=== PATIENT | female | born 1960 ===

== ENCOUNTER 2020-04-30 18:31 | Inpatient (IN) | payer OTHER ==
--- NOTE | 2020-04-30 18:45 | Event Note ---
ED Screening Note Date of service: 04/30/20 Time: 18:45 ED Screening Note: 59-year-old female presents to the emergency room for weakness x2 months that is increasing, tachycardic, weight loss abdominal pain and not able to hold fluids down. This initial assessment/diagnostic orders/clinical plan/treatment(s) is/are subject to change based on patients health status, clinical progression and re- assessment by fellow clinical providers in the ED. Further treatment and workup at subsequent clinical providers discretion. Patient/guardian urged not to elope from the ED as their condition may be serious if not clinically assessed and managed. Initial orders include:
--- NOTE | 2020-04-30 19:18 | XRay Report ---
CHEST 2 VIEWS INDICATION: Weakness. COMPARISON: None FINDINGS: Support devices: None. Heart: Within normal limits. Lungs: No acute air space or interstitial disease. Pleura: No significant pleural effusion. No pneumothorax. Additional findings: None. IMPRESSION: 1. No acute findings. Signer Name: Ron Gavin MD Signed: 04/30/2020 7:13 PM Workstation Name: [id number]
[2020-04-30 19:28] LABS: Basophils % (Auto) 0.4 % (0.0-1.8); Eosinophils # (Auto) 0.1 K/mm3 (0.0-0.4); Eosinophils % (Auto) 1.4 % (0.0-4.3); Hemoglobin 15.1 gm/dl (10.1-14.3); Lymphocytes # (Auto) 2.1 K/mm3 (1.2-5.4); Lymphocytes % (Auto) 29.8 % (13.4-35.0); Mean Corpuscular HGB Conc 35 % (30-34); Mean Corpuscular Volume 92 fl (79-97); Monocytes # (Auto) 0.5 K/mm3 (0.0-0.8); Monocytes % (Auto) 6.9 % (0.0-7.3); Platelet Count 268 K/mm3 (140-440); Red Blood Count 4.69 M/mm3 (3.65-5.03); Red Cell Distribution Width 12.7 % (13.2-15.2)
[2020-04-30] MEDS ORDERED: SODIUM CHLORIDE 0.9% 1000 ML 1,000 ML IV ONE ×2 (19:37)
--- NOTE | 2020-04-30 19:42 | Emergency Department Report ---
HPI - General Chief Complaint: Weakness Time Seen by Provider: 04/30/20 18:42 - HPI HPI: Room 39 The patient is a 59-year-old female present with chief complaint of weakness. The patient states for the past 3 months she has not been able to "tolerate f ood." The patient states she feels like she gets indigestion and things are sticking at the bottom of her stomach whenever she eats. Patient states she feels nauseous but denies vomiting. The patient states she has been becoming progressively weaker over the past several months secondary to her lack of eating and states she is got to the point where she cannot stand or perform her ADLs. Patient states she gets dizzy at times and feels weak constantly. The patient had a CAT scan performed of her abdomen pelvis 2 days ago which was essentially negative per the daughter. Patient has not yet had an EGD performed although she was treated for H. pylori approximately 1 month ago ED Past Medical Hx - Past Medical History Previous Medical History?: Yes Hx Hypertension: Yes Additional medical history: H pylori, hypercholesterolemia, hypothyroidism, anxiety, peptic ulcer disease - Surgical History Additional Surgical History: Bilateral tubal ligation - Family History Family history: no significant - Social History Smoking Status: Current Every Day Smoker (1/3 pack/day) Substance Use Type: None (Denies illicit drug use) ED Review of Systems ROS: Stated complaint: WEAKNESS Other details as noted in HPI Constitutional: weakness. denies: fever Eyes: denies: eye pain ENT: denies: throat pain Respiratory: no symptoms reported Cardiovascular: denies: chest pain Endocrine: no symptoms reported Gastrointestinal: abdominal pain, nausea, diarrhea, constipation. denies: vomiting Genitourinary: denies: dysuria Musculoskeletal: denies: back pain Neurological: denies: headache Physical Exam - Physical Exam Vital Signs: Vital Signs 04/30/20 18:39 Temperature 98.6 F Pulse Rate 114 H Respiratory 16 Rate Blood Pressure 138/87 O2 Sat by Pulse 95 Oximetry Physical Exam: GENERAL: The patient is well-developed female lying on stretcher not appearing to be in acute distress HEENT: Normocephalic. Atraumatic. Extraocular motions are intact. NECK: Supple. Trachea midline CHEST/LUNGS: Clear to auscultation. There is no respiratory distress noted. HEART/CARDIOVASCULAR: Regular. There is tachycardia. There is no gallop rub or murmur. ABDOMEN: Abdomen is soft, with trace discomfort to palpation in the left upper and left lower quadrant. There is no rebound or guarding. Patient has normal bowel sounds. There is no abdominal distention. SKIN: There is no rash. There is no edema. There is no diaphoresis. NEURO: The patient is awake, alert, and oriented. The patient is cooperative. The patient has no focal neurologic deficits. The patient has normal speech MUSCULOSKELETAL: There is no evidence of acute injury. ED Course Vital Signs 04/30/20 18:39 Temperature 98.6 F Pulse Rate 114 H Respiratory 16 Rate Blood Pressure 138/87 O2 Sat by Pulse 95 Oximetry ED Medical Decision Making - Lab Data Result diagrams: 04/30/20 19:04 04/30/20 19:04 Laboratory Tests 04/30/20 04/30/20 04/30/20 19:04 19:04 19:04 WBC 7.0 RBC 4.69 Hgb 15.1 H Hct 43.0 H MCV 92 MCH 32 MCHC 35 H RDW 12.7 L Plt Count 268 Lymph % (Auto) 29.8 [place] % (Auto) 6.9 Eos % (Auto) 1.4 Baso % (Auto) 0.4 Lymph # (Auto) 2.1 [place] # (Auto) 0.5 Eos # (Auto) 0.1 Baso # (Auto) 0.0 Seg Neutrophils % 61.5 Seg Neutrophils # 4.3 Sodium 142 Potassium 4.2 Chloride 105.3 Carbon Dioxide 25 Anion Gap 16 BUN 6 L Creatinine 0.6 Estimated GFR > 60 BUN/Creatinine Ratio 10 Glucose 106 H Calcium 10.5 H Phosphorus 3.70 Magnesium 2.20 Total Bilirubin 0.30 AST 44 H ALT 59 H Alkaline Phosphatase 264 H Total Protein 6.9 Albumin 4.6 Albumin/Globulin Ratio 2.0 TSH Free T4 1.20 PTH Intact Urine Bilirubin Urine RBC (Auto) U Epithel Cells (Auto) 04/30/20 04/30/20 04/30/20 19:04 19:04 20:30 WBC RBC Hgb Hct MCV MCH MCHC RDW Plt Count Lymph % (Auto) [place] % (Auto) Eos % (Auto) Baso % (Auto) Lymph # (Auto) [place] # (Auto) Eos # (Auto) Baso # (Auto) Seg Neutrophils % Seg Neutrophils # Sodium Potassium Chloride Carbon Dioxide Anion Gap BUN Creatinine Estimated GFR BUN/Creatinine Ratio Glucose Calcium Phosphorus Magnesium Total Bilirubin AST ALT Alkaline Phosphatase Total Protein Albumin Albumin/Globulin Ratio TSH 0.979 Free T4 PTH Intact 69.91 H Urine Bilirubin Neg Urine RBC (Auto) < 1.0 U Epithel Cells (Auto) 6.0 - EKG Data -: EKG Interpreted by Me EKG shows normal: sinus rhythm Rate: normal - EKG Data When compared to previous EKG there are: previous EKG unavailable Interpretation: normal EKG - Radiology Data Radiology results: report reviewed (Chest x-ray), image reviewed (Chest x-ray) interpreted by me: Chest x-ray-no focal infiltrates, no pneumothorax. No foreign body seen Findings [facility] [address] [place] [address] XRay Report Signed Patient: CLINTON YOU MR#: [id number] 98 : 1960 Acct:[id number] Age/Sex: 59 / F ADM Date: 04/30/20 Loc: ED Attending Dr: Ordering Physician: USHA LOPES Date of Service: 04/30/20 Procedure(s): XR chest routine 2V Accession Number(s): [id number] cc: USHA VAZQUEZ Fluoro Time In Minutes: CHEST 2 VIEWS INDICATION: Weakness. COMPARISON: None FINDINGS: Support devices: None. Heart: Within normal limits. Lungs: No acute air space or interstitial disease. Pleura: No significant pleural effusion. No pneumothorax. Additional findings: None. IMPRESSION: 1. No acute findings. Signer Name: Ron Gavin MD Signed: 04/30/2020 7:13 PM Workstation Name: [id number] Transcribed By: WG Dictated By: Ron Gavin MD Electronically Authenticated By: Ron Gavin MD Signed Date/Time: 04/30/201912 DD/ 12 TD/TT: - Differential Diagnosis Achalasia, esophageal web, gastritis, peptic ulcer disease, Critical care attestation.: If time is entered above; I have spent that time in minutes in the direct care of this critically ill patient, excluding procedure time. ED Disposition Clinical Impression: Dehydration, Unable to eat, Weakness, Inability to perform activities of daily living Disposition: - OP ADMIT IP TO THIS HOSP Is pt being admited?: Yes Does the pt Need Aspirin: No Condition: Fair Time of Disposition: 21:04 (Hospitalist paged (Dr Hong))
[2020-04-30] MEDS ORDERED: ONDANSETRON 4 MG/2 ML INJ IV ONE (19:46)
[2020-04-30 19:48] LABS: Alanine Aminotransferase 59 units/L (7-56); Albumin 4.6 g/dL (3.9-5); Blood Urea Nitrogen 6 mg/dL (7-17); Calcium 10.5 mg/dL (8.4-10.2); Hemolysis Index 2
[2020-04-30 19:56] LABS: BUN/Creatinine Ratio 10
[2020-04-30 20:59] LABS: Bilirubin,Urine NEG (Negative); Blood,Urine NEG (Negative); Color,Urine Yellow (Yellow); Mucus,Urine FEW /HPF; Protein,Urine <15 mg/dL mg/dL (Negative); RBC,Urine < 1.0 /HPF (0.0-6.0); Urobilinogen,Urine < 2.0 mg/dL (<2.0)
--- NOTE | 2020-04-30 22:08 | History and Physical Report ---
History of Present Illness Date of examination: 04/30/20 Date of admission: 04/30/20 21:19 Chief complaint: nausea Epigastric pain Poor appetite History of present illness: The patient is a 59-year-old female present with chief complaint of weakness. The patient states for the past 3 months she has not been able to "tolerate food." The patient states she feels like she gets indigestion and things are sticking at the bottom of her stomach whenever she eats. Patient states she feels nauseous but denies vomiting. The patient states she has been becoming progressively weaker over the past several months secondary to her lack of eating and states she is got to the point where she cannot stand or perform her ADLs. Patient states she gets dizzy at times and feels weak constantly. The patient had a CAT scan performed of her abdomen pelvis 2 days ago which was essentially negative per the daughter. Patient has not yet had an EGD performed although she was treated for H. pylori approximately 1 month ago ED work-up shows WBC 7.0, hemoglobin 15.1, sodium 142, potassium 4.2, creatinine 0.6, glucose 106, calcium 10.5 Phosphate 3.7. Chest ray done no acute findings Patient seen in ED at bedside wit daughter present.patient reports abdominal pain with nausea but no history of vomiting. She said to have symptoms is ongoing with poor appetite. She says she has not been able to keep any food down. She reported a history of fair health pyloric and she was treated 1 month ago. She said she have not had EGD and colonoscopy procedure. We will consult GI for possible EGD. Past History Past Medical History: anemia, hypertension, hyperlipidemia Past Surgical History: No surgical history Social history: smoking Family history: no significant family history Medications and Allergies Allergies Allergy/AdvReac Type Severity Reaction Status Date / Time metoclopramide [From Reglan] Allergy Nausea Verified 04/30/20 18:42 Home Medications Medication Instructions Recorded Confirmed Last Taken Type AtorvaSTATin [Lipitor] 20 mg PO QHS 04/30/20 04/30/20 04/29/20 History Pantoprazole [Protonix TAB] 40 mg PO BID 04/30/20 04/30/20 04/30/20 History Sucralfate [Carafate] 1 gm PO BID 04/30/20 04/30/20 04/30/20 History Thyroid,Pork [[place] Thyroid] 60 mg PO QAM 04/30/20 04/30/20 04/30/20 History clonazePAM [ Klonopin] 0.5 mg PO TID PRN 04/30/20 04/30/20 04/30/20 History lisinopriL [Zestril TAB] 10 mg PO QDAY 04/30/20 04/30/20 04/29/20 History Active Meds: Active Medications Sodium Chloride (Nacl 0.9% 1000 Ml) 1,000 mls @ 125 mls/hr IV ONCE ONE Stop: 05/01/20 03:36 Last Admin: 04/30/20 19:51 Dose: 125 mls/hr Documented by: Review of Systems Constitutional: fatigue, weakness, poor appetite Ears, nose, mouth and throat: no epistaxis, no bleeding gums Breasts: no swelling Cardiovascular: no dyspnea on exertion, no paroxysmal nocturnal dyspnea Respiratory: no congestion Gastrointestinal: abdominal pain, nausea, heartburn, indigestion Genitourinary Female: no urinary frequency Musculoskeletal: no neck stiffness Integumentary: no rash, no pruritis Neurological: no head injury Psychiatric: no depression Hematologic/Lymphatic: no easy bruising Allergic/Immunologic: no urticaria Exam - Constitutional Vitals: Temp Pulse Resp BP Pulse Ox 98.6 F 114 H 16 138/87 95 04/30/20 18:39 04/30/20 18:39 04/30/20 18:39 04/30/20 18:39 04/30/20 18:39 General appearance: Present: mild distress - EENT Eyes: Present: PERRL ENT: hearing intact, clear oral mucosa - Neck Neck: Present: supple, normal ROM - Respiratory Respiratory effort: normal Respiratory: bilateral: CTA - Cardiovascular Heart Sounds: Present: S1 & S2. Absent: rub, click - Extremities Extremities: pulses symmetrical, No edema Peripheral Pulses: within normal limits - Abdominal General gastrointestinal: Present: soft, non-tender, non-distended, normal bowel sounds Female genitourinary: Present: normal - Integumentary Integumentary: Present: clear, warm, dry - Musculoskeletal Musculoskeletal: gait normal, strength equal bilaterally - Psychiatric Psychiatric: appropriate mood/affect, intact judgment & insight - Neurologic Neurologic: CNII-XII intact, moves all extremities - Allied Health Allied health notes reviewed: nursing Results - Labs CBC & Chem 7: 04/30/20 19:04 04/30/20 19:04 Labs: Abnormal lab results 04/30/20 04/30/20 04/30/20 Range/Units 19:04 19:04 19:04 Hgb 15.1 H (10.1-14.3) gm/dl Hct 43.0 H (30.3-42.9) % MCHC 35 H (30-34) % RDW 12.7 L (13.2-15.2) % BUN 6 L (7-17) mg/dL Glucose 106 H (65-100) mg/dL Calcium 10.5 H (8.4-10.2) mg/dL AST 44 H (5-40) units/L ALT 59 H (7-56) units/L Alkaline Phosphatase 264 H (35-129) units/L PTH Intact 69.91 H (15-65) pg/mL Assessment and Plan - Patient Problems (1) Epigastric abdominal pain Current Visit: Yes Status: Acute Plan to address problem: Patient reports abdominal pain with nausea Symptoms ongoing for some days Recent CT of the abdomen negative for acute process per Patient daughter's report Consults GI for possible EGD/colonoscopy Start antiemetic and PPI (2) Unable to eat Current Visit: Yes Status: Acute Plan to address problem: Unable to eat secondary to nausea and abdominal pain IV fluid with normal saline Monitor electrolytes and replace if needed As needed Zofran (3) Weakness Current Visit: Yes Status: Acute Plan to address problem: Likely secondary to patient not eating Started patient on IV fluids to prevent dehydration We will consult physical therapy if needed (4) Tobacco abuse Current Visit: Yes Status: Acute Plan to address problem: Discussed tobacco use cessation Cardiovascular and neoplasm syndrome of tobacco use explained to patient (5) Elevated liver enzymes Current Visit: Yes Status: Acute Plan to address problem: Likely secondary to dehydration Continue IV with normal saline Monitor liver enzyme (6) DVT prophylaxis Current Visit: Yes Status: Acute Plan to address problem: Subcutaneous Lovenox
[2020-04-30] MEDS ORDERED: METOCLOPRAMIDE 10 MG/2 ML INJ IV PRN (22:26)
[2020-04-30] MEDS ORDERED: LACTULOSE 20 GM/30 ML ORAL LIQD PO PRN (22:26)
[2020-04-30] MEDS: SUCRALFATE 1 GM/10 ML ORAL LIQD PO SCH (23:35)
[2020-05-01] MEDS: SODIUM CHLORIDE 0.9% 1000 ML 1,000 ML IV SCH ×3 (06:27→21:52)
[2020-05-01] MEDS: ONDANSETRON 4 MG/2 ML INJ IV PRN (09:18)
[2020-05-01] MEDS ORDERED: PANTOPRAZOLE 40 MG INJ IV SCH (10:00)
[2020-05-01] MEDS ORDERED: LORazepam 2 MG/ML VIAL IV STA (12:26)
--- NOTE | 2020-05-01 15:24 | Gastroenterology Consultation ---
History of Present Illness - Reason for Consult Consult date: 05/01/20 Nausea, Anorexia Requesting physician: GUSTAVO OATES - History of Present Illness The patient is a 59 yo female seen at our [facility] office ([facility]) for nausea and anorexia. Per the patient she has lost over 10 pounds in the last 3 months. The onset of symptoms was gradual, and there is no severe stomach pain. There is chronic constipation, but no gross blood in the stools. She has been seen at [facility] as well, and all lab testing and imaging (CTs) as well as cardiac w/u are negative. The patient does have a hx of anxiety disorder, and is on TID klonopin. She was admitted here with weakness and dehydration. Her LFTs are chronically elevated, and she has a positive HCV antibody in our office but the viral load (by her report) done at her PCP was negative. She is a heavy smoker. There is no family hx of colon or gastric cancer. She has had no witnessed emesis today. She has had no prior surgery on the the GI tract, and her GB was normal on CT and US. Past History Past Medical History: anemia, hypertension, hyperlipidemia, hypothyroidism, other (Anxiety disorder) Past Surgical History: No surgical history Social history: smoking. denies: alcohol abuse Family history: no significant family history Medications and Allergies Allergies Allergy/AdvReac Type Severity Reaction Status Date / Time metoclopramide [From Reglan] Allergy Nausea Verified 04/30/20 18:42 Home Medications Medication Instructions Recorded Confirmed Last Taken Type AtorvaSTATin [Lipitor] 20 mg PO QHS 04/30/20 04/30/20 04/29/20 History Pantoprazole [Protonix TAB] 40 mg PO BID 04/30/20 04/30/20 04/30/20 History Sucralfate [Carafate] 1 gm PO BID 04/30/20 04/30/20 04/30/20 History Thyroid,Pork [[place] Thyroid] 60 mg PO QAM 04/30/20 04/30/20 04/30/20 History clonazePAM [ Klonopin] 0.5 mg PO TID PRN 04/30/20 04/30/20 04/30/20 History lisinopriL [Zestril TAB] 10 mg PO QDAY 04/30/20 04/30/20 04/29/20 History Active Meds: Active Medications Atorvastatin Calcium (Atorvastatin 20 Mg Tab) 20 mg PO QHS [facility] Enoxaparin Sodium (Enoxaparin 40 Mg/0.4 Ml Inj) 40 mg SUB-Q QDAY [facility]; Protocol Sodium Chloride (Nacl 0.9% 1000 Ml) 1,000 mls @ 75 mls/hr IV DIRECT [facility] Last Admin: 05/01/20 11:09 Dose: 75 mls/hr Documented by: Lactulose (Lactulose 20 Gm/30 Ml Oral Liqd) 20 gm PO QHS PRN PRN Reason: Constipation Ondansetron HCl (Ondansetron 4 Mg/2 Ml Inj) 4 mg IV Q4H PRN PRN Reason: Nausea And Vomiting Last Admin: 05/01/20 09:18 Dose: 4 mg Documented by: Pantoprazole Sodium (Pantoprazole 40 Mg Inj) 40 mg IV QDAY [facility] Last Admin: 05/01/20 09:18 Dose: 40 mg Documented by: Sucralfate (Sucralfate 1 Gm/10 Ml Oral Liqd) 1 gm PO BID [facility] Last Admin: 04/30/20 23:35 Dose: 1 gm Documented by: Trazodone HCl (Trazodone 50 Mg Tab) 50 mg PO QHS [facility] I HAVE REVIEWED/RECONCILED MEDS Review of Systems - Review of Systems All systems: negative (as per the HPI) Exam - Constitutional Vital Signs: Temp Pulse Resp BP Pulse Ox 98.4 F 64 18 131/69 97 05/01/20 11:24 05/01/20 11:24 05/01/20 11:24 05/01/20 11:24 05/01/20 11:24 General appearance: mild distress ((Anxiety)) - EENT Eyes: PERRL ENT: hearing intact, clear oral mucosa, poor dentition, no thrush - Neck Neck: supple, normal ROM - Respiratory Respiratory effort: normal Respiratory: bilateral: CTA - Cardiovascular Rhythm: regular Heart Sounds: Present: S1 & S2 Extremities: no ischemia, No edema - Gastrointestinal General gastrointestinal: Present: soft, non-tender, non-distended - Neurologic Neurological: alert and oriented x3 - Psychiatric Psychiatric: cooperative, agitated, other (anxious) - Labs CBC & Chem 7: 04/30/20 19:04 04/30/20 19:04 Lab Results: Laboratory Results - last 24 hr 04/30/20 04/30/20 04/30/20 19:04 19:04 19:04 WBC 7.0 RBC 4.69 Hgb 15.1 H Hct 43.0 H MCV 92 MCH 32 MCHC 35 H RDW 12.7 L Plt Count 268 Lymph % (Auto) 29.8 [place] % (Auto) 6.9 Eos % (Auto) 1.4 Baso % (Auto) 0.4 Lymph # (Auto) 2.1 [place] # (Auto) 0.5 Eos # (Auto) 0.1 Baso # (Auto) 0.0 Seg Neutrophils % 61.5 Seg Neutrophils # 4.3 Sodium 142 Potassium 4.2 Chloride 105.3 Carbon Dioxide 25 Anion Gap 16 BUN 6 L Creatinine 0.6 Estimated GFR > 60 BUN/Creatinine Ratio 10 Glucose 106 H Calcium 10.5 H Phosphorus 3.70 Magnesium 2.20 Total Bilirubin 0.30 AST 44 H ALT 59 H Alkaline Phosphatase 264 H Total Protein 6.9 Albumin 4.6 Albumin/Globulin Ratio 2.0 TSH Free T4 1.20 PTH Intact Urine Color Urine Turbidity Urine pH Ur Specific [place] Urine Protein Urine Glucose (UA) Urine Ketones Urine Blood Urine Nitrite Urine Bilirubin Urine Urobilinogen Ur Leukocyte Esterase Urine WBC (Auto) Urine RBC (Auto) U Epithel Cells (Auto) Urine Mucus 04/30/20 04/30/20 04/30/20 19:04 19:04 20:30 WBC RBC Hgb Hct MCV MCH MCHC RDW Plt Count Lymph % (Auto) [place] % (Auto) Eos % (Auto) Baso % (Auto) Lymph # (Auto) [place] # (Auto) Eos # (Auto) Baso # (Auto) Seg Neutrophils % Seg Neutrophils # Sodium Potassium Chloride Carbon Dioxide Anion Gap BUN Creatinine Estimated GFR BUN/Creatinine Ratio Glucose Calcium Phosphorus Magnesium Total Bilirubin AST ALT Alkaline Phosphatase Total Protein Albumin Albumin/Globulin Ratio TSH 0.979 Free T4 PTH Intact 69.91 H Urine Color Yellow Urine Turbidity Slightly-cloudy Urine pH 5.0 Ur Specific [place] 1.012 Urine Protein <15 mg/dl Urine Glucose (UA) Neg Urine Ketones Neg Urine Blood Neg Urine Nitrite Neg Urine Bilirubin Neg Urine Urobilinogen < 2.0 Ur Leukocyte Esterase Neg Urine WBC (Auto) 1.0 Urine RBC (Auto) < 1.0 U Epithel Cells (Auto) 6.0 Urine Mucus Few Assessment and Plan - Patient Problems (1) Anorexia Current Visit: Yes Status: Acute Plan to address problem: - CT and US imaging as well as cardiac w/u negative. - Will proceed to EGD/colonoscopy. - Resume patient's klonopin. - Will get HIDA scan as well given abnl LFTs. - Patient encouraged to stop smoking. - If all other testing negative, given severe tobacco, will get CTA, but no gross atherosclerosis commented on report from [facility]. Will also get imaging of head and chest. (2) Abnormal loss of weight Current Visit: Yes Status: Acute (3) Abnormal liver enzymes Current Visit: Yes Status: Acute Plan to address problem: - W/u Negative other than Hep C antibody (+) in our [place] office. - Per patient, viral load was negative at PCP. - Will redraw viral load here in the AM. (4) HCV antibody positive Current Visit: Yes Status: Acute
[2020-05-01] MEDS: ENOXAPARIN 40 MG/0.4 ML INJ SUB-Q SCH (15:31)
[2020-05-01] MEDS: SUCRALFATE 1 GM/10 ML ORAL LIQD PO SCH ×2 (15:31→21:51)
--- NOTE | 2020-05-01 16:56 | Progress Note ---
Assessment and Plan - Patient Problems (1) Acute gastritis Current Visit: Yes Status: Acute Qualifiers: Gastritis type: unspecified gastritis Plan to address problem: IV Protonix twice a day IV Zofran Possible EGD-we will defer to gastroenterology (2) Generalized anxiety disorder Current Visit: Yes Status: Chronic Plan to address problem: Continue Klonopin (3) DVT prophylaxis Current Visit: Yes Status: Acute Plan to address problem: On heparin and GI prophylaxis (4) Transaminitis Current Visit: Yes Status: Acute Plan to address problem: Rule out hepatitis A, B, and C Possible fatty liver (5) Elevated parathyroid hormone Current Visit: Yes Status: Acute Plan to address problem: PTH is elevated Parathyroid scan requested Rule out parathyroid adenoma Calcium level is also high Calcitonin ordered (6) Hypertension Current Visit: Yes Status: Chronic Qualifiers: Hypertension type: essential hypertension Qualified Code(s): I10 - Essential (primary) hypertension Plan to address problem: Continue antihypertensives (7) Hypothyroidism Current Visit: Yes Status: Chronic Qualifiers: Hypothyroidism type: acquired Qualified Code(s): E03.9 - Hypothyroidism, unspecified Plan to address problem: Continue [place] Thyroid Check TSH Subjective Date of service: 05/01/20 Principal diagnosis: Acute gastritis Interval history: The patient is a 59-year-old female present with chief complaint of weakness. The patient states for the past 3 months she has not been able to "tolerate food." The patient states she feels like she gets indigestion and things are sticking at the bottom of her stomach whenever she eats. Patient states she fee ls nauseous but denies vomiting. The patient states she has been becoming progressively weaker over the past several months secondary to her lack of eating and states she is got to the point where she cannot stand or perform her ADLs. Patient states she gets dizzy at times and feels weak constantly. The patient had a CAT scan performed of her abdomen pelvis 2 days ago which was essentially negative per the daughter. Patient has not yet had an EGD performed although she was treated for H. pylori approximately 1 month ago ED work-up shows WBC 7.0, hemoglobin 15.1, sodium 142, potassium 4.2, creatinine 0.6, glucose 106, calcium 10.5 Phosphate 3.7. Chest ray done no acute findings Patient seen in ED at bedside wit daughter present.patient reports abdominal pain with nausea but no history of vomiting. She said to have symptoms is ongoing with poor appetite. She says she has not been able to keep any food down. She reported a history of fair health pyloric and she was treated 1 month ago. She said she have not had EGD and colonoscopy procedure. We will consult GI for possible EGD. + 04/30/2020 Patient still nauseous and having epigastric pain PTH and calcium levels are hig Work up for parathyroid adenoma Objective - Constitutional Vitals: Vital Signs - 12hr 05/01/20 05/01/20 05/01/20 07:56 11:24 16:04 Temperature 98.0 F 98.4 F 98.0 F Pulse Rate 79 64 82 Respiratory 18 18 18 Rate Blood Pressure 130/76 131/69 121/62 O2 Sat by Pulse 97 97 98 Oximetry General appearance: Present: no acute distress, well-nourished - EENT Eyes: PERRL, EOM intact ENT: hearing intact, clear oral mucosa Ears: bilateral: normal - Neck Neck: supple, normal ROM - Respiratory Respiratory effort: normal Respiratory: bilateral: CTA - Breasts Breasts: normal - Cardiovascular Heart rate: 78 Rhythm: regular Heart Sounds: Present: S1 & S2. Absent: gallop, rub Extremities: pulses intact, No edema, normal color, Full ROM - Gastrointestinal General gastrointestinal: Present: soft, non-tender, non-distended, normal bowel sounds - Genitourinary Female genitourinary: normal - Integumentary Integumentary: clear, warm, dry - Musculoskeletal Musculoskeletal: 1, strength equal bilaterally - Neurologic Neurologic: moves all extremities - Psychiatric Psychiatric: memory intact, appropriate mood/affect, intact judgment & insight - Labs CBC & Chem 7: 04/30/20 19:04 04/30/20 19:04 Labs: Abnormal lab results 04/30/20 04/30/20 04/30/20 Range/Units 19:04 19:04 19:04 Hgb 15.1 H (10.1-14.3) gm/dl Hct 43.0 H (30.3-42.9) % MCHC 35 H (30-34) % RDW 12.7 L (13.2-15.2) % BUN 6 L (7-17) mg/dL Glucose 106 H (65-100) mg/dL Calcium 10.5 H (8.4-10.2) mg/dL AST 44 H (5-40) units/L ALT 59 H (7-56) units/L Alkaline Phosphatase 264 H (35-129) units/L PTH Intact 69.91 H (15-65) pg/mL
[2020-05-01 19:23] LABS: Hepatitis B Surface Antigen Non-Reactive (Negative); Hepatitis C Virus Antibody Reactive (NonReactive)
[2020-05-01] MEDS: clonazePAM 0.5 MG TAB PO SCH (20:06)
[2020-05-01] MEDS: traZODone 50 MG TAB PO SCH (21:51)
[2020-05-02] MEDS: PANTOPRAZOLE 40 MG TAB PO SCH (09:11)
[2020-05-02] MEDS: clonazePAM 0.5 MG TAB PO SCH ×3 (09:11→22:59)
[2020-05-02] MEDS: ENOXAPARIN 40 MG/0.4 ML INJ SUB-Q SCH (09:11)
[2020-05-02] MEDS: SUCRALFATE 1 GM/10 ML ORAL LIQD PO SCH ×2 (09:11→22:59)
--- NOTE | 2020-05-02 10:58 | Gastroenterology Progress Note ---
Assessment and Plan Regarding her symptoms, HIDA ordered and awaiting test results Will also plan on proceeding with EGD/colon tomorrow given severity of her symptoms and strong smoking history She also reports some dysphagia to solids that is stable for months, will consider empiric Dilation at time of the EGD Regarding hepC, outpatient management - Patient Problems (1) Abnormal liver enzymes Current Visit: Yes Status: Acute (2) Abnormal loss of weight Current Visit: Yes Status: Acute (3) Epigastric abdominal pain Current Visit: Yes Status: Acute (4) HCV antibody positive Current Visit: Yes Status: Acute (5) Unable to eat Current Visit: Yes Status: Acute (6) Weakness Current Visit: Yes Status: Acute Subjective Date of service: 05/02/20 Principal diagnosis: abd pain, weight loss Interval history: Patient reports still with abdominal pain She reports still with constipation Reports feeling hungry however wants regular food instead of clears that she is on Also endorses to me complaint of dysphagia, with some difficulty with swallowing food especially rice and meat in the upper chest stable for months improved by avoiding those types of foods TO REVIEW The patient is a 59 yo female seen at our [facility] office ([facility]) for nausea and anorexia. Per the patient she has lost over 10 pounds in the last 3 months. The onset of symptoms was gradual, and there is no severe stomach pain. There is chronic constipation, but no gross blood in the stools. She has been seen at [facility] as well, and all lab testing and imaging (CTs) as well as cardiac w/u are negative. The patient does have a hx of anxiety disorder, and is on TID klonopin. She was admitted here with weakness and dehydration. Her LFTs are chronically elevated, and she has a positive HCV antibody in our office but the viral load (by her report) done at her PCP was negative. She is a heavy smoker. There is no family hx of colon or gastric cancer. She has had no witnessed emesis today. She has had no prior surgery on the the GI tract, and her GB was normal on CT and US. Objective - Constitutional Vitals: Temp Pulse Resp BP Pulse Ox 98.1 F 88 18 150/82 98 05/02/20 07:35 05/02/20 07:35 05/02/20 07:35 05/02/20 07:35 05/02/20 07:35 General appearance: no acute distress - EENT Eyes: EOM intact ENT: hearing intact - Respiratory Respiratory effort: normal - Gastrointestinal General gastrointestinal: Present: soft, non-tender - Labs CBC & Chem 7: 04/30/20 19:04 04/30/20 19:04 Labs: Laboratory Results - last 24 hr 05/01/20 05/01/20 18:13 18:13 PTH Intact 44.26 Hepatitis A IgM Ab Non-reactive Hep Bs Antigen Non-reactive Hep B Core IgM Ab Non-reactive Hepatitis C Antibody Reactive A
--- NOTE | 2020-05-02 13:12 | Progress Note ---
Assessment and Plan - Patient Problems (1) Acute gastritis Current Visit: Yes Status: Acute Qualifiers: Gastritis type: unspecified gastritis Plan to address problem: IV Protonix twice a day IV Zofran Possible EGD-we will defer to gastroenterology (2) Generalized anxiety disorder Current Visit: Yes Status: Chronic Plan to address problem: Continue Klonopin (3) Transaminitis Current Visit: Yes Status: Acute Plan to address problem: Rule out hepatitis A, B, and C Possible fatty liver (4) Elevated parathyroid hormone Current Visit: Yes Status: Acute Plan to address problem: PTH is elevated Parathyroid scan requested Rule out parathyroid adenoma Calcium level is also high Calcitonin ordered (5) Hypertension Current Visit: Yes Status: Chronic Qualifiers: Hypertension type: essential hypertension Qualified Code(s): I10 - Essential (primary) hypertension Plan to address problem: Continue antihypertensives (6) Hypothyroidism Current Visit: Yes Status: Chronic Qualifiers: Hypothyroidism type: acquired Qualified Code(s): E03.9 - Hypothyroidism, un specified Plan to address problem: Continue [place] Thyroid Check TSH (7) Hepatitis C Current Visit: Yes Status: Chronic Plan to address problem: Newly diagnosed Will defer to gastroenterology For outpatient treatment for hepatitis C (8) DVT prophylaxis Current Visit: Yes Status: Acute Plan to address problem: On heparin and GI prophylaxis Subjective Date of service: 05/02/20 Principal diagnosis: Acute gastritis Interval history: The patient is a 59-year-old female present with chief complaint of weakness. The patient states for the past 3 months she has not been able to "tolerate food." The patient states she feels like she gets indigestion and things are sticking at the bottom of her stomach whenever she eats. Patient states she feels nauseous but denies vomiting. The patient states she has been becoming progressively weaker over the past several months secondary to her lack of eating and states she is got to the point where she cannot stand or perform her ADLs. Patient states she gets dizzy at times and feels weak constantly. The patient had a CAT scan performed of her abdomen pelvis 2 days ago which was essentially negative per the daughter. Patient has not yet had an EGD performed although she was treated for H. pylori approximately 1 month ago ED work-up shows WBC 7.0, hemoglobin 15.1, sodium 142, potassium 4.2, creatinine 0.6, glucose 106, calcium 10.5 Phosphate 3.7. Chest ray done no acute findings Patient seen in ED at bedside wit daughter present.patient reports abdominal pain with nausea but no history of vomiting. She said to have symptoms is ongoing with poor appetite. She says she has not been able to keep any food down. She reported a history of fair health pyloric and she was treated 1 month ago. She said she have not had EGD and colonoscopy procedure. We will consult GI for possible EGD. + 04/30/2020 Patient still nauseous and having epigastric pain PTH and calcium levels are hig Work up for parathyroid adenoma 05/01/2020 05/01/2020 Nausea persists Abdominal pain persists Hepatitis profile ordered because of the transaminitis 05/02/2020 Patient positive for hepatitis C Will discuss with patient and the daughter Objective - Constitutional Vitals: Vital Signs - 12hr 05/02/20 05/02/20 03:59 07:35 Temperature 97.7 F 98.1 F Pulse Rate 79 88 Respiratory 20 18 Rate Blood Pressure 127/83 150/82 O2 Sat by Pulse 97 98 Oximetry General appearance: Present: no acute distress, well-nourished - EENT Eyes: PERRL, EOM intact ENT: hearing intact, clear oral mucosa Ears: bilateral: normal - Neck Neck: supple, normal ROM - Respiratory Respiratory effort: normal Respiratory: bilateral: CTA - Breasts Breasts: normal - Cardiovascular Heart rate: 78 Rhythm: regular Heart Sounds: Present: S1 & S2. Absent: gallop, rub Extremities: pulses intact, No edema, normal color, Full ROM - Gastrointestinal General gastrointestinal: Present: soft, non-tender, non-distended, normal bowel sounds - Genitourinary Female genitourinary: normal - Integumentary Integumentary: clear, warm, dry - Musculoskeletal Musculoskeletal: 1, strength equal bilaterally - Neurologic Neurologic: moves all extremities - Psychiatric Psychiatric: memory intact, appropriate mood/affect, intact judgment & insight - Labs CBC & Chem 7: 04/30/20 19:04 04/30/20 19:04 Labs: Abnormal lab results 05/01/20 Range/Units 18:13 Hepatitis C Antibody Reactive A (NonReactive)
[2020-05-02] MEDS: LISINOPRIL 10 MG TAB PO SCH (13:44)
[2020-05-02] MEDS: ONDANSETRON 4 MG/2 ML INJ IV PRN ×2 (16:28→20:55)
[2020-05-02] MEDS ORDERED: POLYETHYLENE GLYCOL/ELECT SOLN 4000 ML PO ONE (18:00)
[2020-05-02] MEDS: SODIUM CHLORIDE 0.9% 1000 ML 1,000 ML IV SCH (19:52)
[2020-05-02] MEDS ORDERED: SUCRALFATE 1 GM/10 ML ORAL LIQD PO SCH (22:00)
[2020-05-02] MEDS: traZODone 50 MG TAB PO SCH (23:02)
[2020-05-03 06:21] LABS: Basophils % (Auto) 0.4 % (0.0-1.8); Eosinophils # (Auto) 0.1 K/mm3 (0.0-0.4); Eosinophils % (Auto) 1.4 % (0.0-4.3); Hematocrit 34.9 % (30.3-42.9); Hemoglobin 12.2 gm/dl (10.1-14.3); Lymphocytes # (Auto) 2.1 K/mm3 (1.2-5.4); Lymphocytes % (Auto) 36.1 % (13.4-35.0); Mean Corpuscular HGB Conc 35 % (30-34); Mean Corpuscular Volume 92 fl (79-97); Monocytes # (Auto) 0.5 K/mm3 (0.0-0.8); Monocytes % (Auto) 8.8 % (0.0-7.3); Platelet Count 190 K/mm3 (140-440); Red Blood Count 3.79 M/mm3 (3.65-5.03); Red Cell Distribution Width 12.7 % (13.2-15.2)
[2020-05-03 06:27] LABS: INR 1.11 (0.87-1.13)
[2020-05-03 06:42] LABS: Alanine Aminotransferase 33 units/L (7-56); Albumin 3.5 g/dL (3.9-5); BUN/Creatinine Ratio 4; Blood Urea Nitrogen 3 mg/dL (7-17); Calcium 8.8 mg/dL (8.4-10.2); Hemolysis Index 7
--- NOTE | 2020-05-03 07:50 | Anesthesia Consultation ---
Anesthesia Consult and Med Hx Date of service: 05/03/20 - Airway Anesthetic Teeth Evaluation: Edentulous ROM Head & Neck: Adequate Mental/Hyoid Distance: Adequate Mallampati Class: Class II Intubation Access Assessment: Probably Good - Pre-Operative Health Status ASA Pre-Surgery Classification: ASA3 Proposed Anesthetic Plan: MAC - Pulmonary Hx Smoking: Yes (1 pack/day x 40 years, 1/4 pack/day currently) Hx Asthma: No COPD: No Hx Pneumonia: No - Cardiovascular System Hx Hypertension: Yes - Central Nervous System Hx Psychiatric Problems: Yes (anxiety/depression) - Gastrointestinal Hx Gastroesophageal Reflux Disease: Yes (dysphagea, nausea) - Endocrine Hx End Stage Renal Disease: No Hx Liver Disease: Yes (h/o Hepatitis C) - Other Systems Hx Cancer: No
[2020-05-03] MEDS ORDERED: WATER FOR IRRIG STERILE 250 ML BOTTLE IR ONE (07:59)
[2020-05-03] MEDS ORDERED: propofoL 200 MG/20 ML VIAL IV ONE ×2 (07:59→08:18)
[2020-05-03] MEDS ORDERED: LIDOCAINE MPF (2%) 20 MG/1 ML VIAL 5 ML ONE (07:59)
[2020-05-03] MEDS ORDERED: WATER FOR IRRIG STERILE 1,000 ML BOTTLE ONE (07:59)
[2020-05-03] MEDS ORDERED: SODIUM CHLORIDE 0.9% 1000 ML 1,000 ML IV SCH (08:00)
--- NOTE | 2020-05-03 08:30 | Operative Report ---
Operative Report Operative Report: DOS: 05/03/2020 SURGEON: Damon Fan MD COLONOSCOPY WITH HOT SNARE POLYPECTOMY REPORT PREOPERATIVE AND POSTOPERATIVE DIAGNOSIS: Abdominal pain, change in bowel habits DESCRIPTION OF PROCEDURE: The colonoscope was passed to the terminal ileum as identified by the ileal tissue. Scope was carefully withdrawn. Retroflexion was performed in the rectum. At the end of procedure, the scope was cleaned using normal technique. Vital signs monitored continuously throughout. SEDATION: Provided by Anesthesiology Services. Quality of the prep was adequate. COMPLICATIONS: None. ESTIMATED BLOOD LOSS: Minimal FINDINGS: * Medium nonthrombosed external hemorrhoids * normal terminal ileum * 6 mm semisessile polyp in the ascending colon removed by hot snare polypectomy * 5 mm semisessile polyp in the sigmoid colon removed by hot snare polypectomy * Small nonbleeding internal hemorrhoids * Remainder of exam was unremarkable RECOMMENDATIONS: High-fiber diet Repeat colonoscopy 5 years
--- NOTE | 2020-05-03 08:32 | Operative Report ---
Operative Report Operative Report: DOS: 05/03/2020 SURGEON: Damon Fan MD EGD WITH ESOPHAGEAL DILATION AND GASTRIC BIOPSY REPORT PREOPERATIVE DIAGNOSIS and POSTOPERATIVE DIAGNOSIS: Abdominal pain, esophageal dysphagia ESTIMATED BLOOD LOSS: Minimal DESCRIPTION OF PROCEDURE: A high-resolution EGD scope was passed through the oropharynx, esophagus, stomach, and second portion of duodenum. The scope was carefully withdrawn. Retroflexion was performed in the stomach. At the end of the procedure, the scope was cleaned using normal technique. Vital signs monitored continuously throughout. SEDATION: Provided by Anesthesiology Services. COMPLICATIONS: None. FINDINGS: * No gross lesions in the entire examined duodenum * Moderate gastritis of the entire stomach with nodularity and erythema. Biopsies were taken to rule out H. Pylori infection. A total of 5 biopsies were taken, 2 from the antrum, 1 from the incisura, 2 from the body. * GE junction located 36 cm in the incisors * 1 cm hiatal hernia * No gross lesions in the entire examined esophagus to explain the patient's dysphagia. Therefore, empiric dilation was performed using a savory dilator. A guidewire was passed through the scope, the scope was withdrawn, 48 [place] savory dilator was passed over the guidewire with mild resistance. The endoscope was then reinserted, no perforations or tears were noted RECOMMENDATIONS: Daily PPI Follow pathology results
--- NOTE | 2020-05-03 09:35 | Anesthesia Day of Surgery ---
Anesthesia Day of Surgery - Day of Surgery Patient Examined: Yes Patient H&P Reviewed: Yes Patient is NPO: Yes
--- NOTE | 2020-05-03 09:36 | Post Anesthesia Evaluation ---
- Post Anesthesia Evaluation Patient Participated: Yes Airway Patent: Yes Stable Respiratory Function: Yes Nausea/Vomiting: No Temp > 96.8F: Yes Pain Manageable: Yes Adequeate Hydration: Yes Anesthesia Complications: No Block Receding Appropriately: Not Applicable Patient on Ventilator: No
[2020-05-03] MEDS ORDERED: THYROID PORK 180 MG PO SCH (10:00)
[2020-05-03] MEDS: SUCRALFATE 1 GM/10 ML ORAL LIQD PO SCH ×2 (10:50→21:03)
[2020-05-03] MEDS: ENOXAPARIN 40 MG/0.4 ML INJ SUB-Q SCH (10:50)
[2020-05-03] MEDS: clonazePAM 0.5 MG TAB PO SCH ×3 (10:50→21:03)
[2020-05-03] MEDS: PANTOPRAZOLE 40 MG TAB PO SCH (10:50)
[2020-05-03] MEDS: LISINOPRIL 10 MG TAB PO SCH (10:50)
[2020-05-03] MEDS: THYROID,PORK 60 MG TAB PO SCH (10:50)
[2020-05-03] MEDS: ONDANSETRON 4 MG/2 ML INJ IV PRN (10:52)
[2020-05-03] MEDS ORDERED: SINCALIDE 5 MCG VIAL IV ONE ×2 (13:45→13:56)
--- NOTE | 2020-05-03 15:20 | Nuclear Medicine Report ---
NUCLEAR MEDICINE HEPATOBILIARY SCAN INDICATION: Nausea, weight loss. TECHNIQUE: Radiotracer: Tc-99m mebrofenin (by IV): 4.8 mCi. Gallbladder Stimulant: 1.25 mcg of Kinevac FINDINGS: Hepatic activity: Normal. Biliary activity: Normal. Common bile duct activity at 10 minutes. Gallbladder activity: Normal at 20 minutes. Small bowel activity: Normal at 20 minutes. The gallbladder ejection fraction is mildly decreased measuring 24%. The patient reports the same sym ptoms were reproduced after the infusion of Kinevac. IMPRESSION: No biliary obstruction. The gallbladder ejection fraction is mildly decreased measuring 24%. This could indicate biliary dysk inesia. Signer Name: Maxx Solis Jr, MD Signed: 05/03/2020 3:15 PM Workstation Name: [id number]
--- NOTE | 2020-05-04 06:38 | Progress Note ---
Assessment and Plan - Patient Problems (1) Acute gastritis Current Visit: Yes Status: Acute Qualifiers: Gastritis type: unspecified gastritis Plan to address problem: IV Protonix twice a day IV Zofran Had EGD which showed severe gastritis Continue IV Protonix (2) Generalized anxiety disorder Current Visit: Yes Status: Chronic Plan to address problem: Continue Klonopin (3) Transaminitis Current Visit: Yes Status: Acute Plan to address problem: Hep C positive Outpatient treatment with GI if necessary Follow-up with GI (4) Elevated parathyroid hormone Current Visit: Yes Status: Acute Plan to address problem: PTH is elevated Parathyroid scan requested Rule out parathyroid adenoma Calcium level is also high Calcitonin ordered Parathyroid nuclear medicine scan on Sunday PTH was high and then the repeat was in the normal range It scan is normal patient can be discharged If there is abnormal parathyroid- will refer to surgery as outpatient (5) Hypertension Current Visit: Yes Status: Chronic Qualifiers: Hypertension type: essential hypertension Qualified Code(s): I10 - Essential (primary) hypertension Plan to address problem: Continue antihypertensives (6) Hypothyroidism Current Visit: Yes Status: Chronic Qualifiers: Hypothyroidism type: acquired Qualified Code(s): E03.9 - Hypothyroidism, unspecified Plan to address problem: Continue [place] Thyroid Check TSH (7) Hepatitis C Current Visit: Yes Status: Chronic Plan to address problem: Newly diagnosed Will defer to gastroenterology For outpatient treatment for hepatitis C (8) DVT prophylaxis Current Visit: Yes Status: Acute Plan to address problem: On heparin and GI prophylaxis (9) Discharge planning issues Current Visit: Yes Status: Acute Plan to address problem: Patient is due for parathyroid nuclear medicine scan on 05/05/2020 Patient to be discharged after the nuclear medicine scan Subjective Date of service: 05/03/20 Principal diagnosis: Acute gastritis Interval history: The patient is a 59-year-old female present with chief complaint of weakness. The patient states for the past 3 months she has not been able to "tolerate food." The patient states she feels like she gets indigestion and things are sticking at the bottom of her stomach whenever she eats. Patient states she feels nauseous but denies vomiting. The patient states she has been becoming progressively weaker over the past several months secondary to her lack of eating and states she is got to the point where she cannot stand or perform her ADLs. Patient states she gets dizzy at times and feels weak constantly. The patient had a CAT scan performed of her abdomen pelvis 2 days ago which was essentially negative per the daughter. Patient has not yet had an EGD performed although she was treated for H. pylori approximately 1 month ago ED work-up shows WBC 7.0, hemoglobin 15.1, sodium 142, potassium 4.2, creatinine 0.6, glucose 106, calcium 10.5 Phosphate 3.7. Chest ray done no acute findings Patient seen in ED at bedside wit daughter present.patient reports abdominal pain with nausea but no history of vomiting. She said to have symptoms is ongoing with poor appetite. She says she has not been able to keep any food down. She reported a history of fair health pyloric and she was treated 1 month ago. She said she have not had EGD and colonoscopy procedure. We will consult GI for possible EGD. + 04/30/2020 Patient still nauseous and having epigastric pain PTH and calcium levels are hig Work up for parathyroid adenoma 05/01/2020 05/01/2020 Nausea persists Abdominal pain persists Hepatitis profile ordered because of the transaminitis 05/02/2020 Patient positive for hepatitis C Will discuss with patient and the daughter 05/03/2020 Patient had EGD and HIDA scan today HIDA scan noncontributory Gastritis on the EGD Patient due for parathyroid scan on Sunday to rule out parathyroid adenoma Objective - Constitutional Vitals: Vital Signs - 12hr 05/03/20 05/03/20 05/04/20 19:44 22:00 00:14 Temperature 98.5 F 97.4 F L Pulse Rate 73 76 Respiratory 18 17 18 Rate Blood Pressure 149/80 123/75 O2 Sat by Pulse 99 93 Oximetry 05/04/20 05:00 Temperature 98.2 F Pulse Rate 80 Respiratory 18 Rate Blood Pressure 117/76 O2 Sat by Pulse 96 Oximetry General appearance: Present: no acute distress, well-nourished - EENT Eyes: PERRL, EOM intact ENT: hearing intact, clear oral mucosa Ears: bilateral: normal - Neck Neck: supple, normal ROM - Respiratory Respiratory effort: normal Respiratory: bilateral: CTA - Breasts Breasts: normal - Cardiovascular Heart rate: 78 Rhythm: regular Heart Sounds: Present: S1 & S2. Absent: gallop, rub Extremities: pulses intact, No edema, normal color, Full ROM - Gastrointestinal General gastrointestinal: Present: soft, non-tender, non-distended, normal bowel sounds - Genitourinary Female genitourinary: normal - Integumentary Integumentary: clear, warm, dry - Musculoskeletal Musculoskeletal: 1, strength equal bilaterally - Neurologic Neurologic: moves all extremities - Psychiatric Psychiatric: memory intact, appropriate mood/affect, intact judgment & insight - Labs CBC & Chem 7: 05/03/20 06:02 05/03/20 06:02 Labs: Abnormal lab results 05/03/20 Range/Units 06:02 Chloride 111.0 H (98-107) mmol/L BUN 3 L (7-17) mg/dL Alkaline Phosphatase 180 H (35-129) units/L Total Protein 5.4 L D (6.3-8.2) g/dL Albumin 3.5 L (3.9-5) g/dL
--- NOTE | 2020-05-04 08:01 | Progress Note ---
Assessment and Plan Assessment and plan: --Abdominal pain; esophageal dysphagia Current Visit: Yes Status: Acute Plan to address problem: s/p EGD, with esophageal dilation and gastric biopsy Continue Protonix. Patient would follow-up outpatient for biopsy report -- Acute gastritis Current Visit: Yes Status: Chronic Plan to address problem: s/p EGD with esophageal dilation and gastric biopsy Continue IV Protonix, supportive care, GI following --Generalized anxiety disorder Current Visit: Yes Status: Chronic Plan to address problem: Continue Klonopin -- Transaminitis Current Visit: Yes Status: Acute Plan to address problem: Hep C positive, rest of the work-up as outpatient per GI HIDA scan; biliary dyskinesia, ejection fraction 24% --Elevated parathyroid hormone Current Visit: Yes Status: Acute Plan to address problem: PTH is elevated, Parathyroid nuclear scan for tomorrow 05/05/2020 Rule out parathyroid adenoma Calcium level is also high, Calcitonin, calcium levels improved PTH was high and repeat was in the normal range It scan is normal patient can be discharged If there is abnormal parathyroid- will refer to surgery as outpatient --Hypertension moderate control Current Visit: Yes Status: Chronic Plan to address problem: Continue current antihypertensives As needed medications -- Hypothyroidism Current Visit: Yes Status: Chronic Plan to address problem: Continue Dennis Thyroid Check TSH -- h/o Hepatitis C Current Visit: Yes Status: Chronic Plan to address problem: Newly diagnosed, further evaluation as outpatient --DVT prophylaxis Current Visit: Yes Status: Acute Plan to address problem: On heparin and GI prophylaxis --Discharge planning issues Current Visit: Yes Status: Acute Plan to address problem: Patient is due for parathyroid nuclear medicine scan on 05/05/2020 Closely monitor the patient and adjust management as needed possible discharge after parathyroid scan tomorrow if stable Plan of care reviewed with the patient and the case management History Interval history: I have seen and examined the patient at the bedside Patient's chart and medications reviewed Patient feels slightly better Patient underwent EGD with esophageal dilation and biopsy Patient is scheduled for parathyroid gland nuclear scan tomorrow Vital signs noted Hospitalist Physical - Constitutional Vitals: Temp Pulse Resp BP Pulse Ox 98.1 F 85 18 138/77 97 05/04/20 07:38 05/04/20 07:38 05/04/20 07:38 05/04/20 07:38 05/04/20 07:38 General appearance: Present: no acute distress, well-nourished - EENT Eyes: Present: PERRL, EOM intact - Neck Neck: Present: supple, normal ROM - Respiratory Respiratory effort: normal Respiratory: bilateral: diminished, negative: rales, rhonchi, wheezing - Cardiovascular Rhythm: regular Heart Sounds: Present: S1 & S2 - Extremities Extremities: no ischemia, No edema - Abdominal General gastrointestinal: soft, non-tender, non-distended, normal bowel sounds - Integumentary Integumentary: Present: clear, warm - Psychiatric Psychiatric: appropriate mood/affect, cooperative - Neurologic Neurologic: moves all extremities Results - Labs CBC & Chem 7: 05/03/20 06:02 05/03/20 06:02 Labs: Laboratory Last Values WBC 5.9 K/mm3 (4.5-11.0) 05/03/20 06:02 RBC 3.79 M/mm3 (3.65-5.03) 05/03/20 06:02 Hgb 12.2 gm/dl (10.1-14.3) 05/03/20 06:02 Hct 34.9 % (30.3-42.9) D 05/03/20 06:02 MCV 92 fl (79-97) 05/03/20 06:02 MCH 32 pg (28-32) 05/03/20 06:02 MCHC 35 % (30-34) H 05/03/20 06:02 RDW 12.7 % (13.2-15.2) L 05/03/20 06:02 Plt Count 190 K/mm3 (140-440) 05/03/20 06:02 Lymph % (Auto) 36.1 % (13.4-35.0) H 05/03/20 06:02 Trigg % (Auto) 8.8 % (0.0-7.3) H 05/03/20 06:02 Eos % (Auto) 1.4 % (0.0-4.3) 05/03/20 06:02 Baso % (Auto) 0.4 % (0.0-1.8) 05/03/20 06:02 Lymph # (Auto) 2.1 K/mm3 (1.2-5.4) 05/03/20 06:02 Trigg # (Auto) 0.5 K/mm3 (0.0-0.8) 05/03/20 06:02 Eos # (Auto) 0.1 K/mm3 (0.0-0.4) 05/03/20 06:02 Baso # (Auto) 0.0 K/mm3 (0.0-0.1) 05/03/20 06:02 Seg Neutrophils % 53.3 % (40.0-70.0) 05/03/20 06:02 Seg Neutrophils # 3.2 K/mm3 (1.8-7.7) 05/03/20 06:02 PT 14.2 Sec. (12.2-14.9) 05/03/20 06:02 INR 1.11 (0.87-1.13) 05/03/20 06:02 Sodium 145 mmol/L (137-145) 05/03/20 06:02 Potassium 3.6 mmol/L (3.6-5.0) 05/03/20 06:02 Chloride 111.0 mmol/L (98-107) H 05/03/20 06:02 Carbon Dioxide 25 mmol/L (22-30) 05/03/20 06:02 Anion Gap 13 mmol/L 05/03/20 06:02 BUN 3 mg/dL (7-17) L 05/03/20 06:02 Creatinine 0.7 mg/dL (0.6-1.2) 05/03/20 06:02 Estimated GFR > 60 ml/min 05/03/20 06:02 BUN/Creatinine Ratio 4 % 05/03/20 06:02 Glucose 87 mg/dL (65-100) 05/03/20 06:02 Calcium 8.8 mg/dL (8.4-10.2) D 05/03/20 06:02 Phosphorus 3.70 mg/dL (2.5-4.5) 04/30/20 19:04 Magnesium 2.20 mg/dL (1.7-2.3) 04/30/20 19:04 Total Bilirubin 0.20 mg/dL (0.1-1.2) 05/03/20 06:02 AST 21 units/L (5-40) 05/03/20 06:02 ALT 33 units/L (7-56) 05/03/20 06:02 Alkaline Phosphatase 180 units/L (35-129) H 05/03/20 06:02 Total Protein 5.4 g/dL (6.3-8.2) L D 05/03/20 06:02 Albumin 3.5 g/dL (3.9-5) L 05/03/20 06:02 Albumin/Globulin Ratio 1.8 % 05/03/20 06:02 TSH 0.979 mlU/mL (0.270-4.200) 04/30/20 19:04 Free T4 1.20 ng/dL (0.76-1.46) 04/30/20 19:04 PTH Intact 44.26 pg/mL (15-65) 05/01/20 18:13 Urine Color Yellow (Yellow) 04/30/20 20:30 Urine Turbidity Slightly-cloudy (Clear) 04/30/20 20:30 Urine pH 5.0 (5.0-7.0) 04/30/20 20:30 Ur Specific [place] 1.012 (1.003-1.030) 04/30/20 20:30 Urine Protein <15 mg/dl mg/dL (Negative) 04/30/20 20:30 Urine Glucose (UA) Neg mg/dL (Negative) 04/30/20 20:30 Urine Ketones Neg mg/dL (Negative) 04/30/20 20:30 Urine Blood Neg (Negative) 04/30/20 20:30 Urine Nitrite Neg (Negative) 04/30/20 20:30 Urine Bilirubin Neg (Negative) 04/30/20 20:30 Urine Urobilinogen < 2.0 mg/dL (<2.0) 04/30/20 20:30 Ur Leukocyte Esterase Neg (Negative) 04/30/20 20:30 Urine WBC (Auto) 1.0 /HPF (0.0-6.0) 04/30/20 20:30 Urine RBC (Auto) < 1.0 /HPF (0.0-6.0) 04/30/20 20:30 U Epithel Cells (Auto) 6.0 /HPF (0-13.0) 04/30/20 20:30 Urine Mucus Few /HPF 04/30/20 20:30 Hepatitis A IgM Ab Non-reactive (NonReactive) 05/01/20 18:13 Hep Bs Antigen Non-reactive (Negative) 05/01/20 18:13 Hep B Core IgM Ab Non-reactive (NonReactive) 05/01/20 18:13 Hepatitis C Antibody Reactive (NonReactive) A 05/01/20 18:13 [place]/IV: Voiding Method Toilet Active Medications - Current Medications Current Medications: Generic Name Dose Route Start Last Admin Trade Name Freq PRN Reason Stop Dose Admin Atorvastatin Calcium 20 mg 05/01/20 22:00 05/03/20 21:10 Atorvastatin 20 Mg Tab PO Not Given QHS KAITLIN Clonazepam 0.5 mg 05/01/20 20:00 05/03/20 21:03 Clonazepam 0.5 Mg Tab PO 0.5 mg TID KAITLIN Administration Enoxaparin Sodium 40 mg 05/01/20 10:00 05/03/20 10:50 Enoxaparin 40 Mg/0.4 Ml Inj SUB-Q Not Given QDAY [facility] Protocol Sodium Chloride 1,000 mls @ 50 mls/hr 05/03/20 08:00 Nacl 0.9% 1000 Ml IV DIRECT KAITLIN Lactulose 20 gm 04/30/20 22:26 Lactulose 20 Gm/30 Ml Oral Liqd PO QHS PRN Constipation Lisinopril 10 mg 05/02/20 14:00 05/03/20 10:50 Lisinopril 10 Mg Tab PO Not Given QDAY [facility] Ondansetron HCl 4 mg 04/30/20 22:26 05/03/20 10:52 Ondansetron 4 Mg/2 Ml Inj IV 4 mg Q4H PRN Administration Nausea And Vomiting Pantoprazole Sodium 40 mg 05/02/20 07:30 05/03/20 10:50 Pantoprazole 40 Mg Tab PO Not Given QDAC [facility] Sucralfate 1 gm 04/30/20 23:00 05/03/20 21:03 Sucralfate 1 Gm/10 Ml Oral Liqd PO 1 gm BID KAITLIN Administration Thyroid 60 mg 05/03/20 10:00 05/03/20 10:50 Thyroid,Pork 60 Mg Tab PO Not Given QAM [facility] Trazodone HCl 50 mg 05/01/20 22:00 05/02/20 23:02 Trazodone 50 Mg Tab PO Not Given QHS KAITLIN
[2020-05-04] MEDS: PANTOPRAZOLE 40 MG TAB PO SCH (08:25)
[2020-05-04] MEDS: LISINOPRIL 10 MG TAB PO SCH ×2 (08:25→11:33)
[2020-05-04] MEDS: SUCRALFATE 1 GM/10 ML ORAL LIQD PO SCH ×3 (08:25→21:19)
[2020-05-04] MEDS: clonazePAM 0.5 MG TAB PO SCH ×3 (08:25→21:19)
[2020-05-04] MEDS: ENOXAPARIN 40 MG/0.4 ML INJ SUB-Q SCH (11:33)
[2020-05-04] MEDS: THYROID,PORK 60 MG TAB PO SCH (11:34)
[2020-05-04] MEDS ORDERED: THYROID,PORK 60 MG TAB PO SCH (11:45)
--- NOTE | 2020-05-04 15:23 | Gastroenterology Progress Note ---
Assessment and Plan Patient likely has component of biliary dyskinesia However, as she is not endorsing significant symptoms she does not require cholecystectomy at this juncture Rather, recommend continue proton pump inhibitor and from GI standpoint as she is doing better she can be discharged Regarding hepC, outpatient management - Patient Problems (1) Abnormal liver enzymes Current Visit: Yes Status: Acute (2) Abnormal loss of weight Current Visit: Yes Status: Acute (3) Epigastric abdominal pain Current Visit: Yes Status: Acute (4) HCV antibody positive Current Visit: Yes Status: Acute (5) Unable to eat Current Visit: Yes Status: Acute (6) Weakness Current Visit: Yes Status: Acute Subjective Date of service: 05/04/20 Principal diagnosis: Acute gastritis Interval history: Patient reports abd pain improved, eating ok Reports dysphagia better HIDA showed decreased EF of the GB Bx from EGD/colon negative: A. Antrum, biopsy: Antral and fundic/body type mucosa with marked chronic inflammation Negative for H. pylori type organisms by immunohistochemical stain Negative for intestinal metaplasia, dysplasia or malignancy B. Ascending colon, biopsy: Hyperplastic polyps C. Sigmoid colon, biopsy: Hyperplastic polyp Objective - Constitutional Vitals: Temp Pulse Resp BP Pulse Ox 98.3 F 81 18 143/73 99 05/04/20 11:34 05/04/20 11:34 05/04/20 11:34 05/04/20 11:34 05/04/20 11:34 General appearance: no acute distress - EENT ENT: hearing intact - Respiratory Respiratory effort: normal - Gastrointestinal General gastrointestinal: Present: soft - Labs CBC & Chem 7: 05/03/20 06:02 05/03/20 06:02
[2020-05-04] MEDS: ONDANSETRON 4 MG/2 ML INJ IV PRN (17:12)
[2020-05-05] MEDS: traZODone 50 MG TAB PO SCH (01:12)
[2020-05-05] MEDS: clonazePAM 0.5 MG TAB PO SCH (08:28)
[2020-05-05 08:55] VITALS: BP 155/69
[2020-05-05] MEDS: ENOXAPARIN 40 MG/0.4 ML INJ SUB-Q SCH (10:36)
[2020-05-05] MEDS: PANTOPRAZOLE 40 MG TAB PO SCH (10:37)
[2020-05-05] MEDS: LISINOPRIL 10 MG TAB PO SCH (10:38)
[2020-05-05] MEDS: SUCRALFATE 1 GM/10 ML ORAL LIQD PO SCH (10:38)
--- NOTE | 2020-05-05 12:23 | Nuclear Medicine Report ---
PARATHYROID SCAN HISTORY: Elevated parathyroid hormone in setting of normal creatinine COMPARISON: None. TECHNIQUE: Following the intravenous administration of [id number], early and delayed anterior a nd oblique images of the neck and upper thorax were acquired. RADIOPHARMACEUTICAL: 22 mCi of [id number] FINDINGS: EARLY IMAGING: Physiologic thyroid activity is noted. DELAYED IMAGING: Near complete symmetric washout from the normal thyroid tissue. No abnormal thoraci c activity. Additional Findings: None. IMPRESSION: 1. No significant abnormality. Signer Name: Maxx Solis Jr, MD Signed: 05/05/2020 12:19 PM Workstation Name: [id number]
--- NOTE | 2020-05-05 14:02 | Discharge Summary ---
Providers - Providers Date of Admission: 04/30/20 21:19 Date of discharge: 05/05/20 Attending physician: SHIRLENE GARCIA 04/30/20 22:50 Consult to Physician [CONS] Stat Comment: Consulting Provider: [facility] Physician Instructions: Reason For Exam: epigastric pain Hospitalization Reason for admission: Unable to tolerate form/dysphagia Condition: Fair Pertinent studies: Parathyroid nuclear scan; normal study HIDA scan; biliary dyskinesia, ejection fraction 24% Procedures: s/p EGD, with esophageal dilation and gastric biopsy Hospital course: The patient is a 59-year-old female present with chief complaint of weakness. The patient states for the past 3 months she has not been able to "tolerate food." The patient states she feels like she gets indigestion and things are sticking at the bottom of her stomach whenever she eats. Patient states she feels nauseous but denies vomiting. The patient states she has been becoming progressively weaker over the past several months secondary to her lack of eating and states she is got to the point where she cannot stand or perform her ADLs. Patient states she gets dizzy at times and feels weak constantly. The patient had a CAT scan performed of her abdomen pelvis 2 days ago which was essentially negative per the daughter. Patient has not yet had an EGD performed although she was treated for H. pylori approximately 1 month ago Patient was admitted and appropriately managed evaluated by GI underwent EGD with esophageal dilation and gastric biopsy, patient advised Protonix daily Patient also had deviated parathyroid hormone levels, parathyroid nuclear scan was done which was within normal limits. Today patient is comfortable no new complaints vital signs stable physical examination unremarkable Advised to follow with GI for further evaluation of acute gastritis as well as positive hepatitis C test Smoking cessation counseling done Patient is stable at discharge Discharge diagnosis; And management --Abdominal pain; esophageal dysphagia Current Visit: Yes Status: Acute Plan to address problem: s/p EGD, with esophageal dilation and gastric biopsy Continue Protonix. Patient would follow-up outpatient for biopsy report -- Acute gastritis Current Visit: Yes Status: Chronic Plan to address problem: s/p EGD with esophageal dilation and gastric biopsy Continue IV Protonix, supportive care, GI following --Generalized anxiety disorder Current Visit: Yes Status: Chronic Plan to address problem: Continue Klonopin -- Transaminitis Current Visit: Yes Status: Acute Plan to address problem: Hep C positive, rest of the work-up as outpatient per GI HIDA scan; biliary dyskinesia, ejection fraction 24% --Elevated parathyroid hormone Current Visit: Yes Status: Acute Plan to address problem: Parathyroid nuclear scan normal limits Parathyroid hormone levels normalized --Hypertension ; stable Current Visit: Yes Status: Chronic Plan to address problem: Continue current antihypertensives As needed medications -- Hypothyroidism Current Visit: Yes Status: Chronic Plan to address problem: Continue Rule Thyroid -- h/o Hepatitis C Current Visit: Yes Status: Chronic Plan to address problem: Newly diagnosed, further evaluation as outpatient When she sees GI Dr. Rankin after discharge Cleared by consultants stable at discharge Disposition: DC-01 TO HOME OR SELFCARE Time spent for discharge: 35 min Core Measure Documentation - Palliative Care Palliative Care/ Comfort Measures: Not Applicable - Core Measures Any of the following diagnoses?: none Exam - Constitutional Vitals: Temp Pulse Resp BP Pulse Ox 98.0 F 82 18 155/69 98 05/05/20 07:51 05/05/20 07:51 05/05/20 07:51 05/05/20 07:51 05/05/20 07:51 General appearance: Present: no acute distress, well-nourished - EENT Eyes: Present: PERRL, EOM intact - Neck Neck: Present: supple, normal ROM - Respiratory Respiratory effort: normal Respiratory: bilateral: diminished, negative: rales, rhonchi, wheezing - Cardiovascular Rhythm: regular Heart Sounds: Present: S1 & S2 - Extremities Extremities: no ischemia, No edema - Abdominal General gastrointestinal: Present: soft, non-tender, non-distended, normal bowel sounds - Integumentary Integumentary: Present: clear, warm - Musculoskeletal Musculoskeletal: strength equal bilaterally - Psychiatric Psychiatric: appropriate mood/affect, cooperative - Neurologic Neurologic: moves all extremities Plan Activity: no restrictions Diet: regular Special Instructions: smoking cessation Additional Instructions: Smoking cessation. Diet as tolerated. If you have worsening symptoms contact MD or go to emergency room Follow up with: DR TALIA [Other] - 7 Days MILTON RANKIN MD [Staff Physician] - 7 Days
== END 2020-05-05 16:00 | disposition home or self-care (01) | DRG 392 ==
LOC: ED 18:31 → 3B-SURG 21:19
PROVIDERS: ADMIT Internal Medicine Geriatric Medicine; ATTEND Internal Medicine
PROC: 0DBK8ZZ Excision of Ascending Colon, Via Natural or Artificial Opening Endoscopic (ICD-10-PCS; principal; 2020-05-03)
PROC: 0DBN8ZZ Excision of Sigmoid Colon, Via Natural or Artificial Opening Endoscopic (ICD-10-PCS; 2020-05-03)
PROC: 0DB68ZX Excision of Stomach, Via Natural or Artificial Opening Endoscopic, Diagnostic (ICD-10-PCS; 2020-05-03)
PROC: 0D758ZZ Dilation of Esophagus, Via Natural or Artificial Opening Endoscopic (ICD-10-PCS; 2020-05-03)
DX: R13.10 Dysphagia, unspecified (principal); K29.00 Acute gastritis without bleeding; Z78.9 Other specified health status; F50.89 Other specified eating disorder; E86.0 Dehydration; Z88.8 Allergy status to other drugs, medicaments and biological substances; F17.200 Nicotine dependence, unspecified, uncomplicated; Z98.51 Tubal ligation status; E78.00 Pure hypercholesterolemia, unspecified; E03.9 Hypothyroidism, unspecified; F41.9 Anxiety disorder, unspecified; E78.5 Hyperlipidemia, unspecified; F41.1 Generalized anxiety disorder; B19.20 Unspecified viral hepatitis C without hepatic coma
CPT/HCPCS: 36415; 71046; 78070; 78227; 80053; 80074; 81001; 83735; 83970; 84100; 84439; 84443; 85025; 85610; 87517; 88305; 88342; 93005; 96365; 96375; G0378; A9270-GY; A9500; A9537; C1769; C9113; J1650; J2060; J2405; J2704; J2805; J7030